=== PATIENT | male | born 1970 | race Caucasian/White ===

== ENCOUNTER → 2017-11-28 16:05 | Emergency (ER) | payer SELFPAY ==
--- NOTE | 2017-11-28 16:31 | ED Physician Chart ---
ED Chief Complaint/HPI - Patient Information Date Seen:: 11/28/17 Time Seen:: 16:16 Chief Complaint:: RIGHT UPPER ARM PAIN History of Present Illness:: THIS IS A 47 YR MALE WHO STATES THAT HE INJURED HIS RIGHT BICEPS AREA WHILE WORKING LIFT UP AN OBJECT ON A TRUCK. HE DENIES HYPERTENSION,DIABETUS AND HEART DISEASE. HE DENIES ANY OTHER MEDICAL PROBLEMS. Allergies:: Allergies Allergy/AdvReac Type Severity Reaction Status Date / Time No Known Allergies Allergy Verified 11/28/17 16:09 Vitals:: Vital Signs - 8 hr 11/28/17 16:11 Temp 97.8 F HR 98 RR 16 BP 121/85 O2 Sat % 97 Historian:: Patient Review:: Nurse's Note Reviewed ED Review of Systems - Review of Systems General/Constitutional: No fever, No chills, No weight loss, No weakness, No diaphoresis, No edema, No loss of appetite Skin: No skin lesions, No rash, No bruising Head: No headache, No light-headedness Eyes: No loss of vision, No pain, No diplopia ENT: No earache, No nasal drainage, No sore throat, No tinnitus Neck: No neck pain, No swelling, No thyromegaly, No stiffness, No mass noted Cardio Vascular: No chest pain, No palpitations, No PND, No orthopnea, No edema Pulmonary: No SOB, No cough, No sputum, No wheezing GI: No nausea, No vomiting, No diarrhea, No pain, No melena, No hematochezia, No constipation, No hematemesis G/U: No dysuria, No frequency, No hematuria Musculoskeletal: Bone or joint pain (RIGHT UPPER ARM PAIN), No back pain, No muscle pain Endocrine: No polyuria, No polydipsia Psychiatric: No prior psych history, No depression, No anxiety, No suicidal ideation Hematopoietic: No bruising, No lymphadenopathy Allergic/Immuno: No urticaria, No angioedema Neurological: No syncope, No focal symptoms, No weakness, No paresthesia, No headache, No seizure, No dizziness, No confusion, No vertigo ED Past Medical History - Past Medical History Obtainable: Yes Family History: None Social History: Non Smoker, No Alcohol, No Drug Use, Employed Surgical History: other (LEFT WRIST SURGERY) Psychiatricy History: None Medication: Reviewed ED Physical Exam - Physical Examination General/Constitutional: Awake, Well-developed, well-nourished, Alert, No distress, GCS 15, Non-toxic appearing, Ambulatory Head: Atraumatic Eyes: Lids, conjuctiva normal, PERRL, EOMI Skin: Nl inspection, No rash, No skin lesions, No ecchymosis, Well hydrated, No lymphadenopathy ENMT: External ears, nose nl, Nasal exam nl, Lips, teeth, gums nl Neck: Nontender, Full ROM w/o pain, No JVD, No nuchal rigidity, No bruit, No mass, No stridor Respiratory: Nl effort/Exclusion, Clear to Auscultation, No Wheeze/Rhonchi/Rales Cardio Vascular: RRR, No murmur, gallop, rubs, NL S1 S2 GI: No tenderness/rebounding/guarding, No organomegaly, No hernia, Normal BS's, Nondistended, No mass/bruits, No McBurney tenderness : No CVA tenderness Extremities: No tenderness or effusion (THERE IS TENDERNESS OF THE RIGHT BICEPS AREA WITH NORMAL BUT PAINFUL ROM ), Full ROM, normal strength in all extremities , No edema, Normal digits & nails Neuro/Psych: Alert/oriented, DTR's symmetric, Normal sensory exam, Normal motor strength, Judgement/insight normal, Mood normal, Normal gait, No focal deficits Misc: Normal back, No paraspinal tenderness ED Labs/Radiology/EKG Results - Radiology Results Results: CT SCAN = RIGHT BICEPS MUSCLE TEAR. ED Assessment - Assessment General Assessment: TORN RIGHT BICEPS MUSCLE ED Septic Shock - . Is Septic Shock (SBP<90, OR Lactate>4 mmol\L) present?: No - <6hrs of presentation: Vital Signs: Vital Signs - 8 hr 11/28/17 16:11 Temp 97.8 F HR 98 RR 16 BP 121/85 O2 Sat % 97 ED Reassessment (Disposition) - Reassessment Reassessment Condition:: Improved - Diagnosis Diagnosis:: RIGHT BICEPS MUSCLE TEAR - Aftercare/Follow up Instructions Aftercare/Follow-Up Instructions:: Counseled pt regarding lab results/diagnosis & need follow up, Refer to Discharge Instructions, Counseled pt & family regarding lab results/diagnosis & need follow up - Patient Disposition Discharge/Transfer:: Home Condition at Disposition:: Improved ED Discharge Plan - Patient Disposition Admit/Discharge/Transfer: PT DISCHARGED HOME Condition at Disposition: Improved
--- NOTE | 2017-11-29 08:09 | Diagnostic Imaging Report ---
CT of the right upper extremity without IV contrast History: Biceps trauma pain Comparison: None Technique: Axial images were obtained from the base of the neck to the proximal forearm without IV contrast. Reconstructions were made. Total DLP 738 CTD I 12.6 Findings: Additional images of the abdomen demonstrates atherosclerotic vascular disease. Nonobstructive right renal calculi are noted. The lung hernandez demonstrate hypoventilatory and atelectatic changes. Degenerative changes of the spine are noted. Mild degenerative changes of the AC joint and glenohumeral joint are noted. There is no evidence of an acute fracture or dislocation. There is mild enlargement of the distal biceps muscle with heterogeneous density seen along the distal biceps tendon. IMPRESSION: Mild enlargement of the distal biceps muscle with inflammatory changes along distal biceps musculotendinous junction and tendon. There may be partial tear of the distal biceps tendon. The degree is difficult to determine. MRI is recommended for further assessment. Incidentally noted nonobstructing right renal calculi.
== END | disposition home or self-care (01) ==
LOC: ER 16:05
DX: S46.211A Strain of muscle, fascia and tendon of other parts of biceps, right arm, initial encounter (principal); X58.XXXA Exposure to other specified factors, initial encounter; Y93.89 Activity, other specified; Y92.89 Other specified places as the place of occurrence of the external cause; Y99.0 Civilian activity done for income or pay
CPT/HCPCS: 99284; 96372; 73200; J1885; Z7502

== ENCOUNTER 2018-06-29 10:58 | Emergency (ER) | payer MEDICAID ==
--- NOTE | 2018-06-29 11:59 | ED Physician Chart ---
ED Chief Complaint/HPI - Patient Information Date Seen:: 06/29/18 Time Seen:: 11:30 Chief Complaint:: left sided pain History of Present Illness:: 45 minutes ago while walking in department store developed pain left side of head and left side of the neck and left side of body. No trauma. He had a upper respiratory tract infection which subsided about one week ago. Allergies:: Allergies Allergy/AdvReac Type Severity Reaction Status Date / Time ketorolac [From Toradol] Allergy Verified 06/29/18 11:07 Vitals:: Vital Signs - 8 hr 06/29/18 11:08 Temp 97.9 F HR 94 RR 18 BP 137/85 O2 Sat % 98 Historian:: Patient ED Review of Systems - Review of Systems General/Constitutional: No fever, No chills Skin: No skin lesions Head: Headache Eyes: No loss of vision ENT: Earache Neck: Neck pain Cardio Vascular: No chest pain, No palpitations Pulmonary: No SOB GI: No nausea, No vomiting, No diarrhea Musculoskeletal: Bone or joint pain Endocrine: No polyuria, No polydipsia Psychiatric: No prior psych history, No anxiety Hematopoietic: No bruising Allergic/Immuno: No urticaria Neurological: No syncope, No focal symptoms ED Past Medical History - Past Medical History Past Medical History: Asthma/COPD Family History: None Social History: Non Smoker, No Alcohol Surgical History: other (left wrist for fracture) Psychiatricy History: None Medication: Reviewed ED Physical Exam - Physical Examination General/Constitutional: Well-developed, well-nourished, Alert Head: Atraumatic Eyes: Lids, conjuctiva normal, PERRL Skin: Nl inspection, No rash, No skin lesions, No ecchymosis, Well hydrated, No lymphadenopathy ENMT: External ears, nose nl, TM canals nl, Nasal exam nl, Lips, teeth, gums nl , Oropharynx nl, Tonsils nl Neck: Nontender Other Neck comments:: No carotid bruits Respiratory: Nl effort/Exclusion, Clear to Auscultation Cardio Vascular: RRR, No murmur, gallop, rubs, NL S1 S2 GI: No tenderness/rebounding/guarding, No organomegaly, No hernia, Normal BS's Extremities: No tenderness or effusion, Full ROM, No edema, Normal digits & nails Neuro/Psych: Alert/oriented, Mood normal, Normal gait Other Neuro/Psych comments:: 2 out of 4 drooping left side of mouth which cleared with smiling; strong equal hand grasp; leg strength grossly equal Misc: Normal back ED Labs/Radiology/EKG Results - Lab Results Results: Abnormal Lab Results 06/29/18 06/29/18 12:30 12:30 WBC 9.8 RBC 5.43 Hgb 16.0 Hct 46.8 MCV 86.2 MCH 29.4 MCHC Differential 34.1 RDW 12.1 Plt Count 332 MPV 6.2 Neutrophils % 68.9 Lymphocytes % 19.2 L Monocytes % 8.5 Eosinophils % 2.6 Basophils % 0.8 Sodium 136 Potassium 3.9 Chloride 101 Carbon Dioxide 25.6 Anion Gap 13.3 BUN 17 Creatinine 1.0 Est GFR ( Amer) > 60.0 Est GFR (Non-Af Amer) > 60.0 BUN/Creatinine Ratio 17.0 Glucose 102 Calcium 9.6 Magnesium 2.2 ED Assessment - Assessment General Assessment: Etiology of the patient's left-sided pain is uncertain. It is probably a self- limiting process. Patient was normally ambulatory in the emergency department and throughout his stay in the emergency department looked well. ED Septic Shock - . Is Septic Shock (SBP<90, OR Lactate>4 mmol\L) present?: No - <6hrs of presentation: Vital Signs: Vital Signs - 8 hr 06/29/18 11:08 Temp 97.9 F HR 94 RR 18 BP 137/85 O2 Sat % 98 ED Reassessment (Disposition) - Reassessment Reassessment Condition:: Unchanged - Diagnosis Diagnosis:: Paresthesias - Aftercare/Follow up Instructions Aftercare/Follow-Up Instructions:: Refer to Discharge Instructions - Patient Disposition Discharge/Transfer:: Home Condition at Disposition:: Stable, Unchanged
[2018-06-29 12:37] LABS: % BASOPHILS 0.8 % (0.0-2.0); % EOSINOPHILS 2.6 % (0.0-5.0); % LYMPHOCYTES 19.2 % (20.0-50.0); % MONOCYTES 8.5 % (2.0-10.0); % NEUTROPHILS 68.9 % (40.0-80.0); BASOPHILE ABSOLUTE 0.1 Th/cumm (0-0.2); EOSINOPHILE ABSOLUTE 0.3 Th/cmm (0.1-0.4); HEMATOCRIT 46.8 % (41.0-60); LYMPHOCYTE ABSOLUTE 1.9 Th/cmm (1.5-3.0); MEAN CELL VOLUME 86.2 fl (80-99); MEAN CORPUSCULAR HEMOGLOBIN 29.4 pg (26.0-30.0); MEAN CORPUSCULAR HGB CONC 34.1 pg (28.0-36.0); MEAN PLATELET VOLUME 6.2 fl; MONOCYTE ABSOLUTE 0.8 Th/cmm (0.3-1.0); NEUTROPHILE ABSOLUTE 6.7 Th/cmm (1.8-8.0); PLATELET COUNT 332 Th/cmm (150-400); RED BLOOD COUNT 5.43 Mil/cmm (4.30-5.70); RED CELL DISTRIBUTION WIDTH 12.1 % (11.5-20.0); WHITE BLOOD COUNT 9.8 Th/cmm (4.8-10.8)
[2018-06-29 12:55] LABS: ANION GAP 13.3 (7.0-16.0); BUN - UREA NITROGEN 17 mg/dL (7-25); CALCIUM SERUM 9.6 mg/dL (8.6-10.3); CARBON DIOXIDE 25.6 mEq/L (21.0-31.0); CHLORIDE 101 mEq/L (98-107); GFR AFRICAN-AMERICAN > 60.0 ml/min (>90); GFR NON AFRICAN-AMERICAN > 60.0 ml/min; GLUCOSE 102 mg/dL (70-105); MAGNESIUM 2.2 mg/dL (1.9-2.7); POTASSIUM SERUM 3.9 mEq/L (3.5-5.1); SODIUM SERUM 136 mEq/L (136-145)
[2018-06-29 14:14] LABS: URINE SOURCE MIDSTREAM
[2018-06-29 14:23] LABS: URINE BILIRUBIN NEGATIVE (NEGATIVE); URINE BLOOD NEGATIVE (NEGATIVE); URINE GLUCOSE (UA) NEGATIVE (NEGATIVE); URINE KETONE NEGATIVE (NEGATIVE); URINE LEUKOCYTE ESTERASE NEGATIVE (NEGATIVE); URINE NITRATE NEGATIVE (NEGATIVE); URINE PH 6.5 (4.6 - 8.0); URINE PROTEIN NEGATIVE (NEGATIVE)
[2018-06-29 14:24] LABS: URINE CLARITY CLEAR (CLEAR); URINE COLOR YELLOW; URINE MICROSCOPIC INDICATED? YES
[2018-06-29 14:28] LABS: URINE BACTERIA NONE SEEN /hpf (NONE SEEN); URINE EPITHELIAL CELLS RARE /lpf (FEW); URINE RBC NONE SEEN /hpf (0-5); URINE WBC 0-2 /hpf (0-5)
[2018-06-29] MEDS ORDERED: Acetaminophen 500 MG TAB ONE (14:38)
== END 2018-06-29 15:04 | disposition home or self-care (01) ==
LOC: ER 10:58
DX: R20.2 Paresthesia of skin (principal); R51 Headache; M54.2 Cervicalgia; J44.9 Chronic obstructive pulmonary disease, unspecified; Z88.6 Allergy status to analgesic agent
CPT/HCPCS: 36415-UA; 80048-TC; 81001-TC; 83735-TC; 85025-TC; Z7502; Z7610